=== PATIENT | male | born 1995 | race Caucasian/White ===

== ENCOUNTER 2017-09-29 17:26 | Emergency (ER) | payer OTHER ==
[~2017-09-29] VITALS: Ht 167.6 cm; Wt 75.2 kg
[2017-09-29 18:37] VITALS: BP 157/100
[2017-09-29] MEDS ORDERED: OXYcodone/APAP 5/325MG TABLET PO ONE (19:00)
[2017-09-29] MEDS ORDERED: OXYcodone/APAP 5/325MG TABLET ONE (19:02)
== END 2017-09-29 20:47 | disposition home or self-care (01) ==
LOC: ED 20:10
DX: S62.232A Other displaced fracture of base of first metacarpal bone, left hand, initial encounter for closed fracture (principal); V27.0XXA Motorcycle driver injured in collision with fixed or stationary object in nontraffic accident, initial encounter; Y93.89 Activity, other specified; Y92.488 Other paved roadways as the place of occurrence of the external cause; Y99.8 Other external cause status
CPT/HCPCS: 29125; 99284

== ENCOUNTER 2019-05-12 17:33 | Emergency (ER) | payer SELFPAY ==
[~2019-05-12] VITALS: Ht 170.2 cm; Wt 75.0 kg
[2019-05-12 17:37] VITALS: BP 142/84
[2019-05-12] MEDS ORDERED: OXYcodone/APAP 5/325MG TABLET ONE (17:58)
[2019-05-12] MEDS ORDERED: OXYcodone/APAP 5/325MG TABLET PO ONE (18:00)
== END 2019-05-12 20:27 | disposition home or self-care (01) ==
LOC: ED 19:30
DX: S93.121A Dislocation of metatarsophalangeal joint of right great toe, initial encounter (principal); F17.200 Nicotine dependence, unspecified, uncomplicated; V43.02XA Car driver injured in collision with other type car in nontraffic accident, initial encounter; Y93.89 Activity, other specified; Y92.488 Other paved roadways as the place of occurrence of the external cause; Y99.8 Other external cause status
CPT/HCPCS: 28660; 99284

== ENCOUNTER 2019-12-09 19:43 | Emergency (ER) | payer SELFPAY ==
[~2019-12-09] VITALS: Ht 175.3 cm; Wt 73.0 kg
--- NOTE | 2019-12-09 20:01 | NUR ---
Alert, answering questions appropriately. Arrives via [facility] s/p 30 sec tonic clonic seizure witnessed by pt's . Per CELY, pt was initially postictal upon Fire arrival. [facility], pt was a&o x4. BS 85 for EMS. 18 L AC placed by [facility]. No s/sx acute respiratory distress upon arrival to ED. Speaking in clear, full sentences. O2 high 90s RA. Neurologically in tact upon arrival to ED, see neuro assessment for additional details. PERRLA. Denies incontinence. Denies MOTT. Pt states he does not get aura prior to seizures. Pt states he takes xanax for seizures, has not taken x3 weeks d/t being unable to obtain meds for personal reasons. Denies ETOH use, admits to 5-6 cigarettes/day and daily marijuana use. Seizure pads applied to stretcher. Placed on monitor. Denies chest pain. Denies SOB. Denies abdominal pain. NSR noted.
--- NOTE | 2019-12-09 22:37 | NUR ---
Ambulated to bathroom independently, steady gait
[2019-12-09 22:41] VITALS: BP 142/74
== END 2019-12-09 23:03 | disposition home or self-care (01) ==
LOC: ED 22:45
DX: R56.9 Unspecified convulsions (principal); R55 Syncope and collapse; R41.0 Disorientation, unspecified; F41.9 Anxiety disorder, unspecified; I10 Essential (primary) hypertension; R94.31 Abnormal electrocardiogram [ECG] [EKG]; F17.200 Nicotine dependence, unspecified, uncomplicated
CPT/HCPCS: 93005; 99283

== ENCOUNTER 2020-05-31 16:30 | Emergency (ER) | payer SELFPAY ==
[~2020-05-31] VITALS: Ht 175.3 cm; Wt 70.5 kg
--- NOTE | 2020-05-31 16:45 | NUR ---
Pt noted ambulating to room with test tech from triage without gait disturbance, changing into gown now and awaiting MD castillo.
[2020-05-31] MEDS ORDERED: DIPH,PERTUSS(ACELL),TET VAC/PF 0.5 ML IM-VACC ONE ×2 (17:30→17:47)
[2020-05-31] MEDS ORDERED: LIDOCAINE 1%, 10ML INFIL ONE (17:30)
[2020-05-31] MEDS ORDERED: LIDOCAINE-MPF 1%, 5ML ONE (17:36)
--- NOTE | 2020-05-31 17:44 | NUR ---
PA at bedside for wound cleaning and care with Lidocaine obtained from [employer] for him just prior. collection technician at bedside for assist.
[2020-05-31] MEDS ORDERED: NEOSPORIN OINT. PKT 1 PACKET ONE (18:00)
[2020-05-31 18:50] VITALS: BP 117/61
--- NOTE | 2020-05-31 18:51 | NUR ---
No rsn to [facility] admin noted and pt ambulatory out of dept following d/c instructions.
== END 2020-05-31 19:05 | disposition home or self-care (01) ==
LOC: ED 18:20
DX: S61.412A Laceration without foreign body of left hand, initial encounter (principal); F17.210 Nicotine dependence, cigarettes, uncomplicated; W26.9XXA Contact with unspecified sharp object(s), initial encounter; Y93.89 Activity, other specified; Y92.009 Unspecified place in unspecified non-institutional (private) residence as the place of occurrence of the external cause; Y99.8 Other external cause status
CPT/HCPCS: 12042; 90471; 90715; 99284; 99406

== ENCOUNTER 2020-07-08 20:24 | Emergency (ER) | payer OTHER ==
[~2020-07-08] VITALS: Ht 170.2 cm; Wt 68.0 kg
--- NOTE | 2020-07-08 20:37 | NUR ---
PT BIB [facility], AND WE WERE TOLD PT FOUND UNCONSCIOUS AT HOME AND WAS TURNING BLUE, AND WAS GIVEN NARCAN BY THE 3 Y/O IN THE HOUSE. PT THEN WOKE UP AND WAS TRANSFERRED TO THE ER BY EMS, AND ON ARRIVAL PT IS DROWSY AND SLURRED SPEECH AT THIS TIME.
--- NOTE | 2020-07-08 20:58 | NUR ---
PT REMAINS DROWSY, AND ASKED FOR WATER. PT HAD EMESIS AFTER DRINKING WATER AND HAS BEEN ADVISED TO NOT DRINK MORE WATER HE'S FALLING ASLEEP AND IF HE THROWS UP HE COULD ASPIRATE FLUIDS. PT UNDERSTANDS AND IS GIVEN CALL LIGHT AND SIDE RAILS UP X2. PT TOLD TO REST AND WILL BE OBSERVED FOR THE NEXT 2 HOURS TO BEGIN WITH AND THEN REASSES. PT REMAINS ON FULL CR MONITOR AT THIS TIME. HEAD OF BED UP, AND AIRWAY BEING MAINTAINED. O2 SATS 99% ON O2 NC 2 LPM.
[2020-07-08] MEDS ORDERED: SODIUM CHLORIDE 0.9% 1,000ML IVBOLUS ONE (21:00)
[2020-07-08 21:26] LABS: BASOPHILS % (AUTO) 0 % (0-1); EOSINOPHILS % (AUTO) 0 % (1-7); LYMPHOCYTES % (AUTO) 5 % (22-44); MEAN CORPUSCULAR HEMOGLOBIN 28.9 pg (27.5-34.5); MEAN CORPUSCULAR HGB CONC 32.9 g/dL (33.2-36.2); MEAN PLATELET VOLUME 8.5 fL (7.4-10.4); MONOCYTES % (AUTO) 6 % (2-9); NEUTROPHILS % (AUTO) 89 % (42-75); PLATELET COUNT 195 x10^3/uL (130-400); RED CELL DISTRIBUTION WIDTH 13.7 % (9.4-14.8)
[2020-07-08 21:29] LABS: ALBUMIN 4.6 g/dL (3.4-5.0); ANION GAP 6 mmol/L (5-15); CALCIUM 8.6 mg/dL (8.5-10.1); CHLORIDE 112 mmol/L (98-107); SALICYLATE LEVEL 2.5 mg/dL (2.8-20.0)
[2020-07-08 22:02] LABS: MD SCAN
--- NOTE | 2020-07-08 22:12 | NUR ---
PT HYPOTENSIVE AND IS ASLEEP, REMAINS ON CR MONITOR, AND O2 SATS 95%, MAINTAINING AIRWAY, WITH GOOD AERATION AND OXYGENATION. BP BEING CYCLED Q10 MIN TO MONITOR, PT WAKES UP EASILY WHEN ASLEEP, AND HOB AT 45DEG ANGLE.
--- NOTE | 2020-07-08 22:48 | NUR ---
MD TOOK PT OFF OF O2 NC TO EVAL PTS AIRWAY. O2 SATS REMAINS AT 96%
--- NOTE | 2020-07-08 23:00 | NUR ---
PT A&OX4, NO SLURRED SPEECH AT THIS TIME, AND PT AWAKE. ABLE TO MOVE, AND STOOD UP FOR A LITTLE BIT AND IS STABLE. V/S IMPROVED AND NO LONGER HYPOTENSIVE.
[2020-07-08 23:01] VITALS: BP 124/69
--- NOTE | 2020-07-08 23:12 | NUR ---
PT WIDE AWAKE AND PD NOTIFIED TO COME CHILD AND ADOLESCENT THERAPIST PT HE IS MEDICALLY CLEARED NOW AND TO BE D/C. PT UNDERSTANDS ALL F/U AND D/C INSTRUSTIONS AND WAITING ON PD ESCORT. PT COOPERATIVE AND CALM.
== END 2020-07-08 23:38 | disposition home or self-care (01) ==
LOC: ED 20:32
DX: T40.601A Poisoning by unspecified narcotics, accidental (unintentional), initial encounter (principal); R11.10 Vomiting, unspecified; I10 Essential (primary) hypertension; F17.200 Nicotine dependence, unspecified, uncomplicated; Y92.89 Other specified places as the place of occurrence of the external cause
CPT/HCPCS: 36415; 80048; 80143; 80179; 80320; 82040; 85025; 96360; 99283; J7030; G0480